=== PATIENT | female | born 1960 | race Two or more races ===

== ENCOUNTER 2017-10-05 09:15 | Outpatient (CLI) | payer OTHER ==
[~2017-10-05 09:15] MED LIST: AMOX1TAB12 PO
== END 2017-10-05 12:11 | disposition home or self-care (01) ==
LOC: SONOGRAMA 09:15
DX: E04.2 Nontoxic multinodular goiter (principal)

== ENCOUNTER 2020-02-06 15:14 | Outpatient (CLI) | payer OTHER | END 2020-02-06 16:56 | disposition home or self-care (01) | LOC: MAMO-SONO 15:14 | PROVIDERS: ATTEND Obstetrics & Gynecology Maternal & Fetal Medicine | DX: Z12.31 Encounter for screening mammogram for malignant neoplasm of breast (principal); N64.4 Mastodynia; N60.11 Diffuse cystic mastopathy of right breast; N63.10 Unspecified lump in the right breast, unspecified quadrant; N63.20 Unspecified lump in the left breast, unspecified quadrant ==

== ENCOUNTER 2020-04-02 14:42 | Outpatient (CLI) | payer OTHER | END 2020-04-02 15:02 | disposition home or self-care (01) | LOC: SONOGRAMA 14:42 | PROVIDERS: ATTEND Internal Medicine Endocrinology, Diabetes & Metabolism | DX: E04.1 Nontoxic single thyroid nodule (principal) ==

== ENCOUNTER 2021-05-17 12:31 | Outpatient (CLI) | payer OTHER | END 2021-05-17 12:32 | disposition home or self-care (01) | LOC: MAMO-SONO 12:31 | PROVIDERS: ATTEND Obstetrics & Gynecology Maternal & Fetal Medicine | DX: N60.11 Diffuse cystic mastopathy of right breast (principal); N64.4 Mastodynia; Z12.31 Encounter for screening mammogram for malignant neoplasm of breast ==

== ENCOUNTER 2022-06-20 10:56 | Outpatient (CLI) | payer OTHER | END 2022-06-20 11:53 | disposition home or self-care (01) | LOC: MAMO-SONO 10:56 | PROVIDERS: ATTEND Obstetrics & Gynecology Maternal & Fetal Medicine | DX: Z12.31 Encounter for screening mammogram for malignant neoplasm of breast (principal); N63.0 Unspecified lump in unspecified breast; N64.4 Mastodynia; N60.11 Diffuse cystic mastopathy of right breast ==